=== PATIENT | male | born 1965 | race Hispanic/Latino ===

== ENCOUNTER 2023-02-19 08:02 | Emergency (ER) | payer BC ==
[~2023-02-19] VITALS: Ht 170.2 cm; Wt 70.3 kg
[~2023-02-19 08:02] MED LIST: ASPI-1005 PO; CITA10SO PO; LISI2.5T13 PO; METF-444 PO; METO25 PO; PRAV20TA4 PO
[2023-02-19 08:27] LABS: BASOPHILS % (AUTO) 0.2 % (0.0-5.0); EOSINOPHILS % (AUTO) 0.2 % (0.0-8.0); HEMATOCRIT 45.3 % (42-54); LYMPHOCYTES % (AUTO) 3.8 % (21.0-51.0); MEAN CORPUSCULAR HEMOGLOBIN 27.2 pg (27.0-33.0); MEAN CORPUSCULAR HGB CONC 33.6 g/dL (32.0-36.0); MEAN CORPUSCULAR VOLUME 81.2 fL (79-99); NEUTROPHILS % (AUTO) 91.6 % (40.0-77.0); PLATELET COUNT (AUTO) 237 K/uL (130-400); RED BLOOD CELL COUNT(AUTO) 5.58 MIL/uL (4.50-6.20); RED CELL DISTRIBUTION WIDTH 12.6 % (11.0-15.5); WHITE BLOOD COUNT (AUTO) 8.1 K/uL (4.8-10.8)
[2023-02-19 08:40] LABS: ALBUMIN 4.1 g/dL (3.5-5.0); CREATININE 1.2 mg/dL (0.5-1.5); POTASSIUM 4.8 mmol/L (3.5-5.1)
[2023-02-19 08:55] LABS: APPEARANCE,URINE CLEAR (CLEAR); BILIRUBIN,URINE NEGATIVE (NEGATIVE); COLOR,URINE LIGHT-YELLOW (YELLOW); GLUCOSE, URINE (UA) >=1000 mg/dL (NEGATIVE); KETONES,URINE NEGATIVE (NEGATIVE); LEUKOCYTE ESTERASE ,URINE NEGATIVE Leu/uL (NEGATIVE); NITRATE,URINE NEGATIVE (NEGATIVE); OCCULT BLOOD,URINE NEGATIVE (NEGATIVE); PH,URINE 5.5 (5.0-8.0); PROTEIN,URINE 30 mg/dL (NEGATIVE); UROBILINOGEN,URINE 0.2 mg/dL (0.2-1.0)
[2023-02-19 09:14] LABS: RBC,URINE 0-1 /HPF (0-1)
[2023-02-19] MEDS ORDERED: 0.9%NACL 1000ML 1,000 ML IV ONE (10:30)
[2023-02-19] MEDS ORDERED: INSULIN HUMULIN R 100 UNIT/ML 3ML IV ONE (10:30)
[2023-02-19] MEDS ORDERED: ONDANSETRON 4MG INJ IVP ONE (10:30)
[2023-02-19] MEDS ORDERED: OSEL75 PO (11:46)
[2023-02-19] MEDS ORDERED: ONDA4TAB10 PO (11:46)
[2023-02-19 11:54] VITALS: BP 115/66
== END 2023-02-19 11:55 | disposition home or self-care (01) ==
LOC: EDH 08:02
DX: E11.65 Type 2 diabetes mellitus with hyperglycemia (principal); J10.1 Influenza due to other identified influenza virus with other respiratory manifestations; E86.0 Dehydration; I25.10 Atherosclerotic heart disease of native coronary artery without angina pectoris; E11.9 Type 2 diabetes mellitus without complications; E78.00 Pure hypercholesterolemia, unspecified; I10 Essential (primary) hypertension; Z79.82 Long term (current) use of aspirin; Z79.84 Long term (current) use of oral hypoglycemic drugs; Z79.899 Other long term (current) drug therapy; Z90.49 Acquired absence of other specified parts of digestive tract; Z95.1 Presence of aortocoronary bypass graft; Z20.822 Contact with and (suspected) exposure to COVID-19; Z98.890 Other specified postprocedural states
CPT/HCPCS: 99284; 96374; 87635; 96361; 96375; 84484; 80053; 85025; 87880; 87804 ×2; 82948; 83605; 81001; 36415; 93005; J1815; C9803; J7030; J2405

== ENCOUNTER → 2025-04-13 | Outpatient (CLI) | payer BC ==
[~2025-04-13] MED LIST changes: -ASPI-1005 PO; +ASPI-1443 PO; -CITA10SO PO; +FAMO20TA8 PO; +FURO40TA7 PO; +INSLAN SQ; +INSU100V3 SQ; -LISI2.5T13 PO; -METF-444 PO; -METO25 PO; +METO50TA9 PO; -PRAV20TA4 PO; +TAMS-55 PO
--- NOTE | 2025-04-14 11:01 | HMCIMG ---
EXAMINATION: ULTRASOUND OF THE SCROTUM WITH COLOR DOPPLER. CLINICAL HISTORY: Disorder of male genital organs. COMPARISON: Ultrasound of the scrotum dated 07/21/2013. TECHNIQUE: Grayscale and color doppler images were submitted. In addition, color Doppler is medically necessary to perform in order to evaluate vascularity and blood flow. FINDINGS: The testicles are normal in size, contour, and echotexture. The right testicle measures 4.2 x 1.9 x 3.0 cm. (PSV is 4 cm/s with RI of 0.09). The left testicle measures 4.3 x 2.2 x 2.2 cm. (PSV is 5 cm/s with RI of 0.7). There is patent blood flow within the testicles bilaterally. No intra-testicular mass or abnormal echotexture. Bilateral epididymides are normal in appearance. The right epididymis measures 0.6 cm. The left epididymis measures 0.7 cm. There is no varicocele and shows no significant reflux on Valsalva. No hydrocele. Scrotal zayas appear normal. IMPRESSION: No significant abnormality. Previously demonstrated left epididymitis is not visualized. /[place]
== END | disposition home or self-care (01) ==
LOC: RAH 10:58
PROVIDERS: ATTEND Urology
DX: N50.9 Disorder of male genital organs, unspecified (principal); R33.8 Other retention of urine
CPT/HCPCS: 76870

== ENCOUNTER → 2025-05-17 | Outpatient (CLI) | payer BC ==
--- NOTE | 2025-05-17 16:38 | HMCIMG ---
EXAM: CT Abdomen and Pelvis without Intravenous Contrast CLINICAL HISTORY: 60-year-old male with urine retention TECHNIQUE: Axial computed tomography images of the abdomen and pelvis without intravenous contrast. Dose reduction technique was used including one or more of the following: automated exposure control, adjustment of mA and kV according to patient size, and/or iterative reconstruction. CONTRAST: None COMPARISON: 03/13/2025 00:27 AM FINDINGS: LUNG BASES: Large bilateral pleural effusions, right greater than left. Small consolidation in the lower lobes, question pneumonia. LIVER: Unremarkable. GALLBLADDER AND BILE DUCTS: Unremarkable. No calcified stone. No ductal dilation. PANCREAS: Unremarkable. SPLEEN: Unremarkable. ADRENAL GLANDS: Unremarkable. KIDNEYS, URETERS, AND BLADDER: Nonspecific bilateral perinephric fat stranding. Thickening of the bladder wall, possible acute on chronic cystitis. Chronic [id number] cystitis is similar to prior CT dated 03/13/2025 00:27 AM. No hydronephrosis or nephrolithiasis. No ureteral or bladder calculi. STOMACH AND BOWEL: No obstruction. No wall thickening. No CT evidence of colitis or acute diverticulitis. APPENDIX: No CT evidence for appendicitis. PERITONEUM: No free fluid. No free air. LYMPH NODES: No lymphadenopathy. REPRODUCTIVE: Unremarkable as visualized. VASCULATURE: Atherosclerotic calcifications. No aortic aneurysm. ABDOMINAL WALL AND SOFT TISSUES: Unremarkable. BONES: No fracture or suspicious osseous abnormality. IMPRESSION: 1. Large bilateral pleural effusions, right greater than left. 2. Small consolidation in lower lobes, question pneumonia. 3. Thickening of the bladder wall, possible acute on chronic cystitis, similar to prior CT ABD/PEL dated 03/13/2025, 00:27 AM. /[place]
== END | disposition home or self-care (01) ==
LOC: RAH 11:14
PROVIDERS: ATTEND Urology
DX: N28.89 Other specified disorders of kidney and ureter (principal); N32.89 Other specified disorders of bladder; R33.8 Other retention of urine; J91.8 Pleural effusion in other conditions classified elsewhere; I70.90 Unspecified atherosclerosis
CPT/HCPCS: 74176